=== PATIENT | male | born 1980 | race Caucasian/White ===

== ENCOUNTER 2021-06-13 10:22 | Inpatient (IN) | payer MEDICAID ==
[~2021-06-13] VITALS: Ht 185.4 cm; Wt 83.0 kg
[2021-06-13] MEDS ORDERED: ARIP2TAB27 PO (10:46)
[2021-06-13 12:26] LABS: BASOPHILS % (AUTO) 0.6 % (0.0-2.0); EOSINOPHILS % (AUTO) 0.3 % (1.0-6.0); HEMATOCRIT 39.9 % (41-53); HEMOGLOBIN 13.3 g/dL (13.5-17.5); LYMPHOCYTES % (AUTO) 9.4 % (22.0-44.0); MEAN CORPUSCULAR HGB CONC 33.4 G/dL (31.0-37.0); MEAN CORPUSCULAR VOLUME 90 fL (80-100); MONOCYTES # (AUTO) 0.6 K/uL (0.1-1.0); MONOCYTES % (AUTO) 5.7 % (2.0-9.0); NEUTROPHILS # (AUTO) 8.6 K/uL (1.8-7.7); PLATELET COUNT (AUTO) 300 K/uL (150-450); RED BLOOD CELL COUNT(AUTO) 4.45 MIL/uL (4.50-5.90); RED CELL DISTRIBUTION WIDTH 12.8 % (11.5-14.5)
[2021-06-13 12:27] LABS: COVID AG,FIA SOURCE NASOPHARYNGEAL
[2021-06-13 12:42] LABS: SALICYLATE 5.1 mg/dL (2.8-20.0)
[2021-06-13 12:44] LABS: ANION GAP 9 mmol/L (8-16); CALCIUM, TOTAL 8.3 mg/dL (8.8-10.5); CARBON DIOXIDE 25 mmol/L (22-29); CHLORIDE 109 mmol/L (98-107); CREATININE 0.86 mg/dL (0.60-1.30); GLOMERULAR FILTR. RATE CALC > 60 mL/min (>60); GLUCOSE,RANDOM 112 mg/dL (70-110); POTASSIUM 3.7 mmol/L (3.5-5.1); SODIUM SERUM 143 mmol/L (136-145); UREA NITROGEN, BLOOD 9 mg/dL (7-18)
[2021-06-13 12:45] LABS: ALANINE AMINOTRANSFERASE 58 U/L (12-78); ALBUMIN 3.7 g/dL (3.4-5.0); ALKALINE PHOSPHATASE 58 U/L (46-116); ASPARTATE AMINOTRANSFERASE 33 U/L (15-37); BILIRUBIN,TOTAL 0.2 mg/dL (0.1-1.0); TOTAL PROTEIN, SERUM 6.6 g/dL (6.4-8.2)
[2021-06-13] MEDS ORDERED: HALOPERIDOL LACTATE 5 MG/ML VIAL IM ONE (12:45)
[2021-06-13] MEDS ORDERED: LORazepam 2 MG/ML VIAL IM ONE (12:45)
[2021-06-13] MEDS ORDERED: DiphenhydrAMINE HCL 50 MG/ML VIAL IM ONE (12:45)
[2021-06-13 12:47] LABS: ACETAMINOPHEN < 2 mcg/mL (10-30)
[2021-06-13] MEDS ORDERED: ZOLPIDEM TARTRATE 10 MG TABLET PO PRN (13:00)
[2021-06-13] MEDS ORDERED: HALOPERIDOL 5 MG TABLET PO PRN (13:00)
[2021-06-13 17:21] VITALS: BP 117/67
[2021-06-14 06:27] VITALS: BP 112/70
[2021-06-14 08:32] VITALS: BP 112/58
[2021-06-14] MEDS ORDERED: ONDANSETRON HCL 4 MG TABLET PO PRN (08:45)
[2021-06-14] MEDS ORDERED: MAGNESIUM HYDROXIDE SUSPENSION 30 ML UDCUP PO PRN (08:45)
[2021-06-14] MEDS ORDERED: ACETAMINOPHEN 325 MG TABLET PO PRN (08:45)
[2021-06-14] MEDS ORDERED: DOCUSATE SODIUM 100 MG CAPSULE PO PRN (08:45)
[2021-06-14] MEDS ORDERED: ALBUTEROL SULFATE HFA 90 MCG/PUFF 8 GM INHALER IH PRN (08:45)
[2021-06-14] MEDS ORDERED: NICOTINE 14 MG/24 HOUR PATCH TD PRN (08:45)
[2021-06-14] MEDS ORDERED: MAG HYDROX/AL HYDROX/SIMETH ES 30 ML SUSPENSION UDCUP PO PRN (08:45)
[2021-06-14] MEDS ORDERED: LOPERAMIDE HCL 2 MG CAPSULE PO PRN (08:45)
[2021-06-14] MEDS ORDERED: GuaiFENesin/D-METHORPHAN [SUGAR-FREE] 200-20MG/10 ML SYRUP UDCUP PO PRN (08:45)
[2021-06-14] MEDS ORDERED: IBUPROFEN 400 MG TABLET PO PRN (08:45)
[2021-06-14] MEDS ORDERED: PETROLATUM,WHITE 28 GM JELLY TP PRN (08:45)
[2021-06-14] MEDS ORDERED: CloNIDine HCL 0.1 MG TABLET PO PRN (08:45)
[2021-06-14 09:20] LABS: CHOL/HDL RATIO 2.4 (4.2-7.3); FREE T4 (FREE THYROXINE) 0.95 ng/dL (0.76-1.46); THYROID STIMULATING HORMONE 0.99 uIU/mL (0.36-3.74)
[2021-06-14 16:24] VITALS: BP 137/69
[2021-06-14] MEDS: ARIPiprazole 10 MG TABLET PO SCH (20:15)
[2021-06-14] MEDS: LORazepam 2 MG TABLET PO PRN (21:34)
[2021-06-15 04:46] VITALS: BP 130/63
[2021-06-15 08:32] VITALS: BP 146/73
[2021-06-15] MEDS ORDERED: ALPRAZolam 1 MG TABLET PO PRN (10:45)
[2021-06-15 16:21] VITALS: BP 121/71
[2021-06-15] MEDS: LORazepam 2 MG TABLET PO PRN (17:09)
[2021-06-15] MEDS: ARIPiprazole 10 MG TABLET PO SCH (20:33)
[2021-06-16 00:58] VITALS: BP 115/68
[2021-06-16 08:28] VITALS: BP 127/64
[2021-06-16] MEDS ORDERED: ARIP10TA38 PO (09:28)
== END 2021-06-16 13:15 | disposition home or self-care (01) | DRG 753 ==
LOC: EMS 10:27 → B3A 14:57
DX: F31.2 Bipolar disorder, current episode manic severe with psychotic features (principal); I95.9 Hypotension, unspecified; E83.51 Hypocalcemia; Z20.822 Contact with and (suspected) exposure to COVID-19; Z79.899 Other long term (current) drug therapy; D64.9 Anemia, unspecified
CPT/HCPCS: 80053; 80061; 84439; 84443; 85025; 99285; G0480; G0481; J1200; J1630; J2060

== ENCOUNTER 2022-02-19 22:28 | Emergency (ER) | payer MEDICAID ==
[~2022-02-19] VITALS: Ht 188 cm; Wt 100.0 kg
[~2022-02-19 22:28] MED LIST: ARIP10TA38 PO
[2022-02-20 00:44] LABS: BASOPHILS % (AUTO) 0.4 % (0.0-2.0); HEMATOCRIT 42.5 % (41-53); HEMOGLOBIN 14.4 g/dL (13.5-17.5); LYMPHOCYTES # (AUTO) 1.6 K/uL (1.0-4.8); LYMPHOCYTES % (AUTO) 13.4 % (22.0-44.0); MEAN CORPUSCULAR HEMOGLOBIN 29.7 pg (26.0-34.0); MEAN CORPUSCULAR VOLUME 88 fL (80-100); MONOCYTES # (AUTO) 0.9 K/uL (0.1-1.0); MONOCYTES % (AUTO) 7.6 % (2.0-9.0); NEUTROPHILS % (AUTO) 76.6 % (40.0-70.0); PLATELET COUNT (AUTO) 264 K/uL (150-450); RED BLOOD CELL COUNT(AUTO) 4.86 MIL/uL (4.50-5.90); RED CELL DISTRIBUTION WIDTH 13.4 % (11.5-14.5)
[2022-02-20 00:52] LABS: ANION GAP 11 mmol/L (8-16); CALCIUM, TOTAL 8.9 mg/dL (8.8-10.5); CARBON DIOXIDE 27 mmol/L (22-29); CHLORIDE 108 mmol/L (98-107); CREATININE 0.86 mg/dL (0.60-1.30); GLOMERULAR FILTR. RATE CALC > 60 mL/min (>60); GLUCOSE,RANDOM 106 mg/dL (70-110); POTASSIUM 3.7 mmol/L (3.5-5.1); SODIUM SERUM 146 mmol/L (136-145); UREA NITROGEN, BLOOD 12 mg/dL (7-18)
[2022-02-20 00:58] LABS: ALANINE AMINOTRANSFERASE 45 U/L (12-78); ALBUMIN 3.6 g/dL (3.4-5.0); ALKALINE PHOSPHATASE 83 U/L (46-116); ASPARTATE AMINOTRANSFERASE 23 U/L (15-37); BILIRUBIN,TOTAL 0.3 mg/dL (0.1-1.0); LIPASE 165 U/L (73-393); TOTAL PROTEIN, SERUM 6.7 g/dL (6.4-8.2)
[2022-02-20] MEDS ORDERED: KETOROLAC TROMETHAMINE 30 MG/ML VIAL IVP ONE (02:45)
[2022-02-20] MEDS ORDERED: FentaNYL CITRATE PF 100 MCG/2 ML VIAL IVP ONE (02:45)
[2022-02-20] MEDS ORDERED: LORazepam 2 MG/ML VIAL IVP ONE (02:45)
[2022-02-20] MEDS ORDERED: IBUP-2070 PO (06:06)
[2022-02-20] MEDS ORDERED: OXYC-38 PO (06:09)
[2022-02-20 06:15] VITALS: BP 128/67
== END 2022-02-20 06:46 | disposition home or self-care (01) ==
LOC: EMS 22:29
DX: R07.89 Other chest pain (principal); F31.9 Bipolar disorder, unspecified
CPT/HCPCS: 36415; 71045; 74176; 80053; 83690; 85025; 96374; 96375; 99285; J1885; J2060; J3010